=== PATIENT | female | born 1960 | race Caucasian/White ===

== ENCOUNTER → 2016-04-17 | Outpatient (CLI) | payer OTHER ==
[2016-04-18 07:06] LABS: ESTIMATED AVERAGE GLUCOSE 235 mg/dl; HA1C FLAG Normal (Normal)
== END | disposition home or self-care (01) ==
LOC: C.LAB 14:24
PROVIDERS: ATTEND Family Medicine
DX: E11.9 Type 2 diabetes mellitus without complications (principal)

== ENCOUNTER 2021-12-18 09:41 | Observation (INO) ==
[~2021-12-18 09:41] MED LIST: BUPIVACAINE 0.25% 30 ML VIAL ONE; LIDOCAINE 1% LOCAL 20 ML VIAL ONE; VANCOMYCIN HCL 1000MG/20ML VIAL ONE; WATER, STERILE FOR INJ 10 ML VIAL ONE
[2021-12-18] MEDS ORDERED: MIDAZOLAM HCL 5 MG/ML 1 ML VIAL ONE (10:20)
[2021-12-18] MEDS ORDERED: ceFAZolin 330 MG/ML 1 GM VIAL ONE (10:21)
[2021-12-18] MEDS ORDERED: fentaNYL citrate 100 MCG/2 ML VIAL ONE (10:21)
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
--- NOTE | 2021-12-18 10:36 | Pre Anesthesia Assessment ---
Date of Service December 18, 2021 Pre Sedation Assessment Vital Signs Temp Pulse Resp BP Pulse Ox O2 Del Method 12/18/21 09:49 36.8 C 82 16 205/110 H 96 Room Air Cardiovascular + regular rate and + regular rhythm Respiratory + respiratory effort normal Pre-Sedation Airway Assessment Smoking Status: Former smoker Hx Sleep Apnea: Yes Hx Difficult Intubation: No Short, Thick Neck: No Thyromental Distance: > or= 3.5 Finger Breadths Oral Cavity: + WNL Mallampati Class: III ASA: ASA3 NPO Status Date of Last Intake of Fluids: 12/18/21 Time of Last Intake of Fluids: 07:00 Date of Last Intake of Solid Food: 12/17/21 Procedure Planning Contraindications for Sedation: none Current Medications Reviewed: Yes Notes The planned sedation has been discussed with the patient. Informed Consent was obtained. I have identified the patient, determined the appropriateness of sedation and have assessed the patient immediately prior to the procedure. All medicine(s) and interventions are by my order.
[2021-12-18] MEDS ORDERED: oxyCODONE HCL IR 5 MG TAB (IMMEDIATE RELEASE) PO PRN (12:16)
--- NOTE | 2021-12-18 12:16 | Post Anesthesia Assessment ---
Date of Service December 18, 2021 Post Sedation Assessment Vital Signs Temp Pulse Resp BP Pulse Ox O2 Del Method 12/18/21 09:49 36.8 C 82 16 205/110 H 96 Room Air Recovery Score Activity: Moves 4 extremities Respiration: Deep Breath/Cough Circulation: +/-20% PreAnes Value Consciousness: Fully Awake Oxygen Saturation: > 92% On Room Air Discharge Sedation Level of Care: Fast Track Phase II Post Sedation Plan On clinical assessment, the patient appears to have tolerated the sedation without complications. Patient is recovering as anticipated. Patient will continue to be monitored by nursing and may be discharged when sedation discharge criteria are met per below protocol. Upon Completions of procedure up to 15 minutes continue every 5 minute vital signs and the P.A.R. score; then discharge to a Phase I or Fast Track to Phase II per the following guidelines: * Discharge Patient to appropriate Phase II area if PAR is 8 or greater or return to pre- procedure baseline. The post - procedure orders will be as directed. * If PAR score is less than 8 or not return to pre-procedure baseline then patient will follow Phase I monitoring till PAR is reached for Phase II. The Phase I may be done in procedure room or may call to secure a Phase I area. * If naloxone or flumazenil are used for reversal, hold in Phase I for continued monitoring from when last reversal dose was given for a minimum of 60 minutes or longer pending the nurse and/or physician discretion of patient condition before discharge to Phase II. Please call the Sedation Physician to re-evaluate and complete post-note for discharge to Phase II area. Do NOT discharge from procedure sedation or Phase 1 until post- sedation evaluation note is complete by procedure /sedation MD Sedation Discharge Instructions to be given to the patient at discharge to home.
--- NOTE | 2021-12-18 12:16 | Electrophysiology Report ---
Date of Service December 18, 2021 Electrophysiology Procedure Electrophysiology Procedure Report Procedure performed: Implantation of dual-chamber ICD Staff demo specialist: Rodríguez Laguna MD Indication: The patient is a 61-year-old woman with a history of an ischemic cardiomyopathy who despite optimal medical therapy continues to have an ejection fraction less than 30%. She has not suffered a myocardial infarction in the past 40 days or had revascularization in the past 90 days. She has [place] heart association class I-II symptoms. She has an anticipated longevity greater than 1 year. Is on these factors she was felt to be a good candidate for an ICD as primary prevention against sudden cardiac . Procedure in detail: The patient was informed of the risks benefits and alternatives to the intended procedure and she wished to proceed. She was taken to the electrophysiology suite in a fasting state. A preoperative antibiotic had been administered. The patient was monitored electrocardiographically throughout today's procedure and conscious sedation was administered per protocol. The left upper pectoral area is prepped and draped in usual sterile fashion. This area was anesthetized using subcutaneous administration of a xylocaine solution. An incision was made at this site and carried down to the prepectoralis fascia using sharp dissection. Electrocautery was also employed for dissection as well as for hemostasis. A device pocket was fashioned tissues above the pectoralis muscle. Subsequent to this maneuver the left axillary vein was accessed using modified Seldinger technique. Sheaths were placed over guidewires at this site and used to fa cilitate passage of the pacing leads to the respective chambers under fluoroscopic guidance. This included right atrial and right ventricular leads. Adequate sensing and threshold parameters were obtained prior to Active fixation of the leads to the endocardial surface. The proximal portion leads were then sutured the prepectoral fascia using nonabsorbable suture. The device pocket was irrigated with antibiotic solution. The leads were then attached to the device. The device and leads were then placed in the pocket and pocket was closed in 3 layers of absorbable suture. Steri-Strips and sterile dressing were applied. The device was tested noninvasively prior to conclusion the procedure. The patient tolerated procedure well there no immediate complications. Equipment used: New pulse generator: Private Advisor Zaranga. Model number: DD MB 1 D4 serial number [id number] Right atrial lead: Private Advisor Medtronic. Model number: [id number] serial number [id number] Right ventricular lead: Private Advisor [employer]tr[employer]. Model number: 6935M serial number [id number] Measured data: Right atrial lead: P waves measure 1.8 mV. Pacing threshold was 0.75 V at 0.4 ms with a pacing appearance of 399 ohms Right ventricular lead: R waves measured 9.3 mV. Pacing threshold was 0.75 V at 0.4 ms with a pacing impedance of 342 ohms Impression: Successful implantation of dual-chamber ICD MN[facility] Electrophysiology codes ICD Procedure 1: ICD: 34018 Insert single or dual ICD system PG Moderate Sedation Codes Moderate Sedation Codes Procedure 1: Sedation/Anesthesia: 56106 Mod Sedation by the same physician;Init15 Min Child Age 5 & Up Procedure 2: Sedation/Anesthesia: 22246 Mod Sedation by the same physician; Ea [id number] Minutes
[2021-12-18] MEDS ORDERED: NON-FORMULARY MEDICATION (Cpap Machine misc) SCH (12:30)
[2021-12-18] MEDS ORDERED: DEXTROSE 50% 50 ML SYRINGE IV PRN (14:00)
[2021-12-18] MEDS ORDERED: GLUCOSE 40% GEL 15 GM TUBE PO PRN (14:00)
[2021-12-18] MEDS ORDERED: GLUCOSE 10 TAB/TUBE PO PRN (14:00)
[2021-12-18] MEDS ORDERED: GLUCAGON FOR INJ 1 MG VIAL IM PRN (14:00)
[2021-12-18] MEDS ORDERED: CARBOHYDRATES FOR HYPOGLYCEMIA PO PRN (14:00)
[2021-12-18] MEDS: LOSARTAN/HCTZ 50/12.5MG TAB PO SCH (14:32)
[2021-12-18] MEDS: carvediloL 6.25 MG TAB PO SCH (17:41)
[2021-12-18] MEDS ORDERED: ceFAZolin 1000MG 1,000 MG/7.5 ML SYR IV ONE (19:00)
[2021-12-18] MEDS ORDERED: INSULIN GLARGINE HUM REC ANLOG SQ SCH (21:00)
[2021-12-19] MEDS: ACETAMINOPHEN 325 MG TAB PO PRN ×2 (03:22→11:28)
[2021-12-19] MEDS: carvediloL 6.25 MG TAB PO SCH (08:18)
[2021-12-19] MEDS: LOSARTAN/HCTZ 50/12.5MG TAB PO SCH (08:20)
[2021-12-19] MEDS ORDERED: CHOLECALCIFEROL 1,000 UNITS 25 MCG TAB PO SCH (09:00)
[2021-12-19] MEDS ORDERED: NON-FORMULARY MEDICATION (Biotin 1,000 mcg tablet,chewable) PO SCH (09:00)
[2021-12-19] MEDS ORDERED: ADVANCED PROBIOTIC 1250 MG CAPSULE PO SCH (09:00)
[2021-12-19] MEDS ORDERED: CLOPIDOGREL BISULFATE 75 MG TAB PO SCH (09:00)
--- NOTE | 2021-12-19 09:59 | XRay Report ---
TWO VIEW CHEST CLINICAL HISTORY: Cardiac pacemaker implantation. FINDINGS: PA and lateral chest radiographs are obtained. No prior studies are available for compariso n at the time of dictation. The PA view is degraded by patient rotation. A 2-lead cardiac AICD has be en placed and partially obscures the left mid chest. Leads project over the residual appendage and th e right ventricle. The heart is enlarged noting atherosclerotic calcification of the thoracic aorta. The mitral annulus is densely calcified. There is prominence of the pulmonary vasculature. Scarring/a telectasis is noted at the lung bases. The lungs and pleural spaces are otherwise clear. There is no pneumothorax. The skeletal structures are osteopenic. The bony thorax appears intact. IMPRESSION: 1. A 2-lead cardiac AICD has been implanted as above. No pneumothorax is seen post procedure. 2. Cardiomegaly with prominence of the pulmonary vasculature. Correlate clinically for evidence of fl uid overload/mild congestive change. 3. No airspace consolidation or pleural effusion is identified. ACT 112: Negative or not required by law. Electronically signed by: Abdoulaye Rowland M.D. 12/19/2021 9:58 AM
--- NOTE | 2021-12-19 10:14 | Discharge Summary ---
Date of Service December 19, 2021 Admission HPI Per Admitting Provider The patient is a 61-year-old woman with a history of coronary disease and associated ischemic cardiomyopathy. Despite optimal medical therapy and revascularization could she continues to have poor left ventricular function. Recent echocardiogram demonstrated ejection fraction of 25-30%. Based on these findings she was felt to be a good candidate for an ICD as primary prevention against sudden cardiac . Discharge Data Allergies Allergy/AdvReac Type Severity Reaction Status Date / Time aspirin Allergy Unknown Verified 12/18/21 10:16 salicylates Allergy Unknown Verified 12/18/21 10:16 metformin AdvReac Severe "sick" Verified 11/26/21 13:49 Procedures Performed Operation Date: 12/18/21 11:00 Actual Procedures p ICD Insertion Single or Dual - Rodríguez Laguna MD Ordered Studies 12/18/21 06:45 EP Lab Images for PACS ONCE Discharge Plan Discharge Items Patient Disposition: Home - Self-Care Reason For Visit: Decreased Cardiac EF and Cardiomyopathy Discharge Diagnosis: ischemmic cm Lifting: No more than 10 pounds Lifting Comment: no more than 10# with left arm Bathing: Keep incision dry Bathing Comment: keep wound dry and steri-strip intact until f/u next week Driving/Machine Use: Resume 1 day after discharge Non-emergency contact: Aml Analyst Call non-emergency contact if: you have any medication questions, your symptoms worsen, you have a fever, your wound has increased redness, your wound has increased drainage and your wound pain has increased Follow-up/Referrals: Yashira Thompson MD [Primary Care Provider] - 12/29/21 11:00 am (WIth TRUDY Velasquez) Diet: Carb Consistent or DM2 and Heart Healthy Addtl Attending Provider Instructions: may remove outer dressing in AM Pending Studies at Discharge: No Stand-Alone Forms: [employer], Smoking Cessation Medications and DC Order Prescriptions: Continued CPAP Machine Misc 1 ea .ROUTE .COMPLEX Qty: 1 0RF Rx Instructions: 1 ea CPAP W/ HEATED HUMIDITY, 15CM PRESSURE, DX: G47.30, LENGTH OF NEED 99 MONTHS; (DME) pen needle, diabetic [BD Ultra-Fine Micro Pen Needle] 32 gauge x 1/4" needle See Rx Instructions .ROUTE .MEDSUPPLY Qty: 100 11RF Rx Instructions: Use with insulin up to 2 per day clopidogrel 75 mg tablet 75 mg PO DAILY Qty: 90 3RF losartan-hydrochlorothiazide 100-25 mg tablet 1 tab PO DAILY Qty: 90 3RF (DME) blood-glucose meter Misc See Rx Instructions .ROUTE .MEDSUPPLY Qty: 1 Rx Instructions: [facility] brand- pt unsure of brand carvedilol 6.25 mg tablet 6.25 mg PO BID Qty: 60 11RF Rx Instructions: must administer with a meal/food Acidophilus Capsule 6 mg PO DAILY Victoza 3-Kapil 0.6 mg/0.1 mL (18 mg/3 mL) pen injector 1.2 mg subcut Q24H Rx Instructions: Patient is titrating medication. She is currently injecting 6 clicks after 0.6mg biotin 1,000 mcg tablet,chewable 1,000 mcg PO DAILY Toujeo SoloStar U-300 Insulin 300 unit/mL (1.5 mL) insulin pen 20 unit subcut HS cholecalciferol (vitamin D3) 25 mcg (1,000 unit) capsule 50 mcg PO DAILY Qty: 30 1RF Discharge Orders: Discharge Order (Routine); Ordered 12/19/21 Ordered By: Rodríguez Laguna Admission Data Admit Date/Time: 12/18/21 10:27 Attending Provider: Rodríguez Laguna Admit Provider: Rodríguez Laguna Primary Care Provider: Yashira Thompson V. Other Interventions: Discharge Summary Assessment (RN) Last Done: 12/19/21 10:05 Coding
== END 2021-12-19 11:37 | disposition home or self-care (01) ==
LOC: 2E 09:41 → EP 09:41
PROC: EPB.ICD (2021-12-18 11:00)